=== PATIENT | female | born 1975 | race Caucasian/White ===

== ENCOUNTER → 2019-03-16 | Outpatient (CLI) | payer OTHER | LOC: BMCIMAGING 13:30 | PROVIDERS: ATTEND Internal Medicine Rheumatology | DX: S32.2XXA Fracture of coccyx, initial encounter for closed fracture (principal); M79.642 Pain in left hand; M79.641 Pain in right hand; M79.672 Pain in left foot; M79.671 Pain in right foot; M25.562 Pain in left knee; M25.561 Pain in right knee ==